=== PATIENT | female | born 1955 | race African-American/Black ===

== ENCOUNTER 2017-02-17 15:55 | Emergency (ER) | payer MEDICAID ==
[~2017-02-17] VITALS: Ht 162.6 cm; Wt 77.3 kg
[2017-02-17 16:07] LABS: GLUCOSE,POINT OF CARE 113 MG/DL (70-110)
[2017-02-17] MEDS ORDERED: LISI-660 PO (16:08)
[2017-02-17] MEDS ORDERED: SULFACETAMIDE SODIUM 10% 15 ML OPHTHALMIC SOLUTION OD ONE (16:45)
[2017-02-17] MEDS ORDERED: FLUORESCEIN SODIUM 1 MG STRIP ONE (16:55)
[2017-02-17] MEDS ORDERED: PROPARACAINE HCL 0.5% 15 ML OPHTHALMIC SOLUTION OD ONE (17:00)
[2017-02-17 17:22] VITALS: BP 146/97
== END 2017-02-17 17:27 | disposition home or self-care (01) ==
LOC: EMS 15:57
DX: S05.01XA Injury of conjunctiva and corneal abrasion without foreign body, right eye, initial encounter (principal); H01.9 Unspecified inflammation of eyelid; E11.9 Type 2 diabetes mellitus without complications; I10 Essential (primary) hypertension; Z88.0 Allergy status to penicillin; X58.XXXA Exposure to other specified factors, initial encounter; Y93.89 Activity, other specified; Y92.89 Other specified places as the place of occurrence of the external cause; Y99.8 Other external cause status
CPT/HCPCS: 82962; 99283